=== PATIENT | female | born 1935 | race Caucasian/White ===

== ENCOUNTER → 2018-05-21 13:34 | Outpatient (CLI) | payer MEDICARE, OTHER, SELFPAY ==
--- NOTE | 2018-05-21 13:39 | DI.RAD.S_ITS ---
PROCEDURE: XR CHEST 2V INDICATIONS: edema sob TECHNIQUE: 2 views of the chest were acquired. COMPARISON: None. FINDINGS: Surgical changes and devices: None. Lungs and pleura: No pleural effusions or pneumothorax. Lungs are free of infiltrate. On lateral view, there are 9 mm and 7 mm nodular densities in the retrosternal region, the smaller probably in the right middle lobe. Mediastinum: Mediastinal contours are normal. Heart size is normal. Tortuous aorta. Possible small hiatal hernia. Bones and chest wall: No suspicious bony abnormalities. Soft tissues appear unremarkable. IMPRESSION: 1. No acute cardiopulmonary abnormality 2. Pulmonary nodules are indeterminant in absence of prior exams. The larger and more superior nodule in the retromanubrial space is not identified on PA view. Non-contrast CT chest imaging recommended for further evaluation. Dictated by: Martin Herrera M.D. on 05/21/2018 at 14:30 Approved by: Martin Herrera M.D. on 05/21/2018 at 14:34
== END ==
PROVIDERS: Family Provider Family Medicine; PCP Family Medicine; Visit Provider Family Medicine
DX: R06.02 Shortness of breath (principal); R60.9 Edema, unspecified; R91.8 Other nonspecific abnormal finding of lung field
CPT/HCPCS: 71046

== ENCOUNTER → 2018-05-29 14:25 | Outpatient (CLI) | payer MEDICARE, OTHER, SELFPAY ==
--- NOTE | 2018-05-29 14:31 | DI.CT.S_ITS ---
PROCEDURE: CT CHEST WO CON INDICATIONS: abnormal chest xray/lung nodule TECHNIQUE: Noncontrast 2.0-2.5 mm thick sections acquired from the pulmonary apices to the posterior costophrenic angles. 7 mm thick coronal and sagittal MIP reformats were then acquired. A low radiation dose technique was utilized. COMPARISON: [facility], , XR CHEST 2V, 05/21/2018, 13:24. FINDINGS: Image quality: Diagnostic, given the low radiation dose technique. Lungs and pleura: The ALEJO granuloma is present within the right middle lobe which likely corresponds with the more inferior radiopacity described on the lateral chest film dated 05/21/18. A calcified granuloma is present at the medial left lung base not characterized by plain film. There is platelike atelectasis or scarring at the right lung base. No other pulmonary nodules. No acute air space opacities. No pleural effusion or pneumothorax. Mediastinum: Heart size is normal. No pericardial effusion. No mediastinal adenopathy by size criteria. Calcified mediastinal and right hilar nodes suggest prior granulomatous disease. Thoracic aorta and central pulmonary arteries are normal in size. Scattered atheromatous calcifications are present within the aortic arch. Esophagus is normal in caliber. No hiatal hernia. Bones and chest wall: There is a questionable mass within the lateral right breast at approximately 9:00. No suspicious bony lesions. No vertebral body compression fractures. No axillary or supraclavicular adenopathy by size criteria. Dystrophic calcifications are present within the right thyroid lobe. The left thyroid lobe is unremarkable. Abdomen: Visualized upper abdomen solid organs and bowel loops appear normal in the absence of contrast. IMPRESSION: 1. Calcified granuloma within the right middle lobe likely represents the more inferior nodule described on the plain film dated 05/21/18. There is no correlate to the more superior retrosternal nodule on the lateral view suggesting an extrapulmonary radiopacity. 2. Questionable right breast mass as described above. Nonemergent second ultrasound and mammogram is recommended to further characterize this finding. Fleischner Society criteria for SOLID lung nodule followup. Nodule size (mm)Low-risk patientHigh-risk patient<6 (single or multiple)No routine followup.Optional CT at 12 months. 6-8 (single or multiple)CT at 6-12 months, then optional CT at 18-24 mo.CT at 6-12 months, then CT at 18-24 months. >8 (single)CT at 3 months, PET-CT, or biopsy. Same as for low-risk pts. >8 (multiple)CT at 3-6 months, then optional CT at 18-24 mo.CT at 3-6 months, then CT at 18-24 months. Fleischner Society criteria for SUB-SOLID lung nodule followup. Solitary pure ground-glass nodules<6 mm (ground glass or part solid)No followup needed. 6 mm or larger (ground glass)CT at 6-12 months to confirm persistence, then CT every 2 years until 5 years.6 mm or larger (part solid)CT at 3-6 months to confirm persistence, then annual CT until 5 years if unchanged and solid component remains <6 mm. Multiple sub-solid nodules<6 mmCT at 3-6 months, then CT consider at 2 & 4 years for high risk patients. [address] at 3-6 months. Subsequent management based on most suspicious lesions. Recommendations do not apply to lung cancer screening, patients with immunosuppression, or patients with known primary cancer. Dictated by: Nalini Jaime M.D. on 05/29/2018 at 17:10 Approved by: Nalini Jaime M.D. on 05/29/2018 at 17:15
== END ==
PROVIDERS: Family Provider Family Medicine; PCP Family Medicine; Visit Provider Family Medicine
DX: R91.1 Solitary pulmonary nodule (principal)
CPT/HCPCS: 71250

== ENCOUNTER 2023-11-02 11:24 | Emergency (ER) | payer MEDICARE, OTHER, SELFPAY ==
[2023-11-02 11:29] VITALS: BP 120/63; PULSE 94; RESP 16; TEMP 36.2; O2SAT 97
--- NOTE | 2023-11-02 11:33 | DI.RAD.S_ITS ---
PROCEDURE: XR KNEE LT 3V INDICATIONS: pain, no specific injury TECHNIQUE: 3 views of the knee were acquired. COMPARISON: [facility], CR, XR KNEE RT 3V, 03/23/2021, 16:13. [facility], , KNEE 3V RIGHT, 01/29/2014, 9:29. FINDINGS: Bones: No fractures or dislocations. Mild degenerative changes with mild osteophytosis and mild joint space narrowing. No suspicious bony lesions. Soft tissues: Small joint effusion. No suspicious soft tissue calcifications. IMPRESSION: No acute osseous abnormalities. Mild degenerative changes of the knee. Dictated by: Ramesh Jane M.D. on 11/02/2023 at 12:00 Approved by: Ramesh Jane M.D. on 11/02/2023 at 12:01
[2023-11-02] MEDS: ACETAMINOPHEN 325 MG TABLET 975 MG PO (12:08)
--- NOTE | 2023-11-02 12:11 | PC.NURSE ---
snack provided to take tylenol
--- NOTE | 2023-11-02 12:22 | ED.EXTPRO ---
HPI - Extremity Problem <Emy Lisa PA-C - Last Filed: 11/02/23 12:34> General Chief complaint: Extremity Problem,Nontraumatic Stated complaint: knee pain and swelling Time Seen by Provider: 11/02/23 11:55 Source: patient Mode of arrival: Ambulatory History of Present Illness HPI Narrative: 88-year-old female presents to the ED with 1 day of left-sided knee pain. Patient states she was going about her usual daily activities when she felt a sharp pain in her left knee. Patient states that she has been unable to bear weight and walk since then. Patient denies numbness, tingling, weakness. Patient has not taken any medications for the pain. Related Data Home Medications Medication Instructions Recorded Confirmed [GARLIC] ##0 03/29/17 05/30/23 amlodipine 5 mg tablet 5 mg PO DAILY 05/21/18 05/30/23 cholecalciferol (vitamin D3) 25 1,000 unit PO DAILY 05/21/18 05/30/23 mcg (1,000 unit) capsule Evening primrose PO DAILY 11/21/18 05/30/23 dapsone 25 mg tablet 25 mg PO .COMPLEX 11/21/18 05/30/23 Previous Rx's Medication Instructions Recorded metoprolol tartrate 50 mg tablet 50 mg PO BID #180 tabs 09/11/17 losartan 100 mg tablet 100 mg PO DAILY #90 tabs 11/21/18 apixaban 5 mg tablet (Eliquis) 5 mg PO BID #180 tabs 01/13/21 diclofenac sodium 1 % topical gel 2 g topical ONCE arthritis pain 01/13/21 (Voltaren) #100 grams Parking Permit... #1 ea 05/12/22 tolterodine 4 mg capsule,extended 4 mg PO DAILY #90 caps 12/01/22 release 24 hr simvastatin 20 mg tablet 20 mg PO HS #90 tabs 04/17/23 estradiol 0.01% (0.1 mg/gram) 1 g vaginal 2XW #42.5 grams 07/11/23 vaginal cream Allergies Allergy/AdvReac Type Severity Reaction Status Date / Time No Known Drug Allergies Allergy Verified 05/30/23 09:45 Review of Systems <Emy Lisa PA-C - Last Filed: 11/02/23 12:34> Constitutional Constitutional: Denies chills, Denies fatigue, Denies fever(s), Denies frequent falls, Denies lethargy and Denies weakness Eyes Eyes: Denies change in vision, Denies eye discharge, Denies irritation and Denies loss of vision ENT Ears, Nose, Mouth, and Throat: Denies change in voice, Denies dizziness, Denies neck pain, Denies sore throat and Denies throat swelling Cardiovascular Cardiovascular: Denies chest pain, Denies irregular heart rhythm, Denies lightheadedness, Denies palpitations, Denies dyspnea, Denies dyspnea on exertion and Denies orthopnea Respiratory Respiratory: Denies cough, Denies dyspnea, Denies dyspnea on exertion and Denies wheezing Gastrointestinal Gastrointestinal: Denies abdominal pain, Denies change in bowel habits, Denies diarrhea, Denies nausea and Denies vomiting Musculoskeletal Musculoskeletal: Denies neck pain and Denies numbness Comments: Left knee pain Integumentary/Breasts Skin/Breast: Denies pruritus, Denies erythema, Denies rash and Denies wounds Neurologic Neurologic: Denies behavioral changes, Denies confusion, Denies dizziness, Denies frequent falls, Denies loss of vision, Denies numbness and Denies weakness Psychiatric Psychiatric: Denies anxiety, Denies behavioral changes, Denies confusion, Denies depression, Denies homicidal ideation and Denies suicidal ideation Endocrine Endocrine: Denies fatigue, Denies flushing and Denies palpitations Hematologic/Lymphatic Hematologic/Lymphatic: Denies easy bruising Allergic/Immunologic Allergic/Immunologic: Denies urticaria, Denies throat swelling and Denies wheezing Patient History <Emy Lisa PA-C - Last Filed: 11/02/23 12:34> Medical History Left knee pain Anemia Knee pain Osteoarthritis of right knee Superficial laceration Low back pain Well adult exam Mitral regurgitation (Unknown) Epidermolysis bullosa acquisita (Unknown) Cataracts, bilateral (Unknown) GERD (gastroesophageal reflux disease) (Unknown) Hyperlipemia (Unknown) Hypertension (Unknown) Urinary incontinence (Unknown) Surgical History Status post right breast lumpectomy (~1966) Hx of cataract surgery (~2014) Family History Brother Age: 87 Heart disease Father No problems noted. Mother No problems noted. Social History Smoking Status: Never smoker alcohol intake: current substance use type: does not use Smoking Status: Never smoker alcohol intake frequency: holidays/special occasions only Substance Use Type: does not use Exam <Emy Lisa PA-C - Last Filed: 11/02/23 12:34> Narrative Exam Narrative: Const General:?cooperative, healthy appearing and comfortable HENMS Head:?normal to inspection Ears:?hearing grossly normal bilaterally Nose:?external nose normal Face and sinus:?normal facial exam and sinuses nontender Mouth:?oral mucosae normal Throat:?posterior oropharynx normal Eyes General:?appearance normal, both eyes and all related structures Neck Neck:?normal visual inspection and no lymphadenopathy noted Resp Effort & Inspection:?normal respiratory effort Auscultation:?clear to auscultation bilaterally Cardio Rate:?regular rate Rhythm:?regular rhythm Musculoskeletal There is some tenderness to palpation over the left patella. No appreciable swelling. There is full range of motion of the knee. Strength and sensation is intact. Patient is neurovascularly intact. Neuro General:?patient alert, patient awake and patient oriented x3 Initial Vital Signs Initial Vital Signs: Vital Signs Temperature 97.1 F L 11/02/23 11:29 Pulse Rate 94 H 11/02/23 11:29 Respiratory Rate 16 11/02/23 11:29 Blood Pressure 120/63 11/02/23 11:29 Pulse Oximetry 97 11/02/23 11:29 Oxygen Delivery Method Room Air 11/02/23 11:29 <Gigi Rahman MD - Last Filed: 11/02/23 17:43> Initial Vital Signs Initial Vital Signs: Vital Signs Temperature 97.1 F L 11/02/23 11:29 Pulse Rate 94 H 11/02/23 11:29 Respiratory Rate 16 11/02/23 11:29 Blood Pressure 120/63 11/02/23 11:29 Pulse Oximetry 97 11/02/23 11:29 Oxygen Delivery Method Room Air 11/02/23 11:29 Course <Emy Lisa PA-C - Last Filed: 11/02/23 12:34> Orders Ordered: ED Orders 11/02/23 11:33 XR knee LT 3V Stat Discontinued Medications Acetaminophen (Acetaminophen 325 Mg Tablet) 975 mg PO NOW ONE Stop: 11/02/23 12:05 Last Admin: 11/02/23 12:08 Dose: 975 mg Documented By: [facility] Vital Signs Vital signs: Vital Signs - 8 hr 11/02/23 11:29 Temperature 97.1 F L Pulse Rate 94 H Respiratory Rate 16 Blood Pressure 120/63 Pulse Oximetry 97 Oxygen Delivery Method Room Air <Gigi Rahman MD - Last Filed: 11/02/23 17:43> Orders Ordered: ED Orders 11/02/23 11:33 XR knee LT 3V Stat Discontinued Medications Acetaminophen (Acetaminophen 325 Mg Tablet) 975 mg PO NOW ONE Stop: 11/02/23 12:05 Last Admin: 11/02/23 12:08 Dose: 975 mg Documented By: [facility] Vital Signs Vital signs: Vital Signs - 8 hr 11/02/23 11:29 Temperature 97.1 F L Pulse Rate 94 H Respiratory Rate 16 Blood Pressure 120/63 Pulse Oximetry 97 Oxygen Delivery Method Room Air MDM - Extremity (Nontraumatic) <Emy Lisa PA-C - Last Filed: 11/02/23 12:34> MDM Narrative Medical decision making narrative: 88-year-old female presents to the ED with 1 day of left-sided knee pain. Patient states she was going about her usual daily activities when she felt a sharp pain in her left knee. Concern for fracture/dislocation versus musculoskeletal sprain/strain versus other. Will obtain x-ray, give Tylenol, lidocaine patch for pain. Will re-evaluate. X-ray shows no fractures or dislocations but a small joint effusion. Patient's symptoms most likely consistent with a musculoskeletal sprain/strain. Discussed findings with patient. Recommend rest, ice, Tylenol, lidocaine patches. Recommend follow-up with PCP for further evaluation. ED return precautions discussed with patient. Patient verbalized understanding. Medical records reviewed: Yes Discharge Plan Departure Patient Disposition: Home Clinical Impression: Acute knee pain Qualifiers: Laterality: left Qualified Code(s): M25.562 - Pain in left knee Instructions: DI for Knee Pain Activity Restrictions/Additional Instructions: You were evaluated in the ED today for left-sided knee pain. Your x-ray did not show any fractures or dislocations, only showed a small joint effusion that is likely due to a muscular sprain or strain. Please rest the knee for the next 2-3 days. You may take Tylenol 1000 mg 3 times a day with food. You may also continue to apply lidocaine patches which are available [id number] at drug stores. Please follow-up with your PCP as soon as possible. Return to the ED if you have worsening symptoms, numbness, tingling, weakness. Prescriptions: No Action amlodipine 5 mg tablet 5 mg PO DAILY cholecalciferol (vitamin D3) 1,000 unit capsule 1,000 unit PO DAILY Evening primrose PO DAILY losartan 100 mg tablet 100 mg PO DAILY Qty: 90 1RF [GARLIC] Qty: 0 metoprolol tartrate 50 MG tablet 50 mg PO BID Qty: 180 3RF dapsone 25 mg tablet 25 mg PO .COMPLEX Patient Comments: 1 PO every other day Rx Instructions: 1 PO every other day (DME) Parking Permit... See Rx Instructions .Route .MEDSUPPLY Qty: 1 0RF Rx Instructions: I find this patient to be medically disabled and qualified for disabled parking as indicated and signed on the Accompanying [employer] Parking Application for Individuals. simvastatin 20 mg tablet 20 mg PO HS Qty: 90 1RF estradiol 0.01 % (0.1 mg/gram) cream 1 g vaginal 2XW Qty: 42.5 1RF diclofenac sodium [Voltaren] 1 % gel 2 g TOP ONCE Qty: 100 5RF Rx Instructions: apply to single elbow, wrist or hand; for hand includes palm/fingers/back of hand Eliquis 5 mg tablet 5 mg PO BID Qty: 180 1RF tolterodine 4 mg capsule,extended release 24hr 4 mg PO DAILY Qty: 90 3RF Referrals: Paulo Leo, [Primary Care Provider] - Stand Alone Forms: Patient Portal/API ED Sign-out <Gigi Rahman MD - Last Filed: 11/02/23 17:43> Cosign ED Attending Dex Attestation: I was immediately available in the department for consultation. Documentation has been reviewed. I agree with assessment and plan.
== END 2023-11-02 12:26 | disposition home or self-care (01) ==
PROVIDERS: Emergency Provider Student in an Organized Health Care Education/Training Program; Family Provider Family Medicine; PCP Family Medicine
DX: M25.562 Pain in left knee (principal); Z79.01 Long term (current) use of anticoagulants; Z79.899 Other long term (current) drug therapy
CPT/HCPCS: 73562; 99283

== ENCOUNTER → 2024-02-19 09:05 | Outpatient (CLI) | payer MEDICARE, OTHER, SELFPAY ==
--- NOTE | 2024-02-19 09:06 | DI.ECHO.S_ITS ---
[facility] +---------+ : : [address] [place] : : : : [id number] : : : : Phone: [phone]+ Echocardiogram Report + + :Name: RAVI ROCA Study Date: 02/19/2024 Height: 64 in : :[facility] ReadingLocation: Weight: 120 lb : : Gender: Female BSA: 1.6 m2 : :: 1935 Age: 88 yrs BP: 125/76 mmHg: :Reason For Study: MITRAL VALVE PROLAPSE : :Ordering Physician: FELIZ, : :BRENDA Performed By: Claudette Valdez : :Referring: BRENDA PIPER : + + Interpretation Summary The left ventricle is normal in size. The ejection fraction is estimated to be 55-60%. Diastolic parameters suggest a pseudonormalization pattern, consistent with probable elevated filling pressures. The right ventricle is normal in size and function. There is prolapse of the anterior mitral valve leaflet. There is mild mitral valve prolapse. There is moderate to severe mitral regurgitation. The aortic valve is trileaflet. There is mildly reduced leaflet mobility. There is no hemodynamically significant valvular aortic stenosis. There is mild to moderate tricuspid regurgitation. Previously mild TR. Compared to the prior echo exam, there has been an increase in TR severity. The right ventricular systolic pressure is estimated to be at least 35 mmHg based on an estimated right atrial pressure of 3 mm Hg. Previously 27 mmHg. Compared to the prior echo exam, there has been an increase in the severity of pulmonary hypertension. There is mild to moderate pulmonic regurgitation. Patient has chronic moderate to severe MR for long time. Echocardiogram on January 2016 showed LVEF 55 to 60% with moderate to severe MR. Since then LVEF in the range of 55 to 65% range and MR moderate to moderate to severe on multiple echocardiograms. Procedure: A two-dimensional transthoracic echocardiogram with color flow and Doppler was performed. The study quality was technically adequate. Comparison is made with the echocardiogram of 07/29/2022. The patient was in sinus rhythm with heart rates between 55-63 bpm during the exam. Left Ventricle: The left ventricle is normal in size. Proximal septal thickening is noted. There is no thrombus. The ejection fraction is estimated to be 55-60%. There are no focal wall motion abnormalities. Diastolic parameters suggest a pseudonormalization pattern, consistent with probable elevated filling pressures. There has been no significant change since the previous study. Right Ventricle: The right ventricle is normal in size and function. Atria: The left atrium is severely dilated. The left atrium has mildly increased in size since the prior echo exam. The right atrium is mildly dilated. There is no Doppler evidence for an interatrial shunt. Mitral Valve: There is mild mitral annular calcification. The mitral valve leaflets appear mildly thickened, but open well. There is prolapse of the anterior mitral valve leaflet. There is mild mitral valve prolapse. There is moderate to severe mitral regurgitation. There are multiple regurgitant jets present. Aortic Valve: The aortic valve is mildly calcified. There is mild aortic valve sclerosis. There is mildly reduced leaflet mobility. The aortic valve is trileaflet. There is discrete nodular thickening of the right coronary cusp. There is no hemodynamically significant valvular aortic stenosis. There has been no significant change since the previous study. No aortic regurgitation is present. Tricuspid Valve: The tricuspid valve is normal. There is mild to moderate tricuspid regurgitation. The right ventricular systolic pressure is estimated to be at least 35 mmHg based on an estimated right atrial pressure of 3 mm Hg. Compared to the prior echo exam, there has been an increase in TR severity. Compared to the prior echo exam, there has been an increase in the severity of pulmonary hypertension. Pulmonic Valve: The pulmonic valve leaflets are thin and pliable; valve motion is normal. There is mild to moderate pulmonic regurgitation. Great Vessels: The aortic root is normal size. The dimensions of the ascending aorta are normal. The IVC is of normal diameter and collapses greater than 50% with a sniff. This suggests a low right atrial pressure of 3 mm Hg. Pericardium/ Pleura There is no pericardial effusion. There is no pleural effusion. MMode/2D Measurements & Calculations LVIDd: 5.3 cm LVOT diam: 2.1 cm LVIDs: 3.5 cm Ao root diam: 3.1 cm FS: 33.6 % asc Aorta Diam: 2.6 cm IVSd: 0.59 cm LVPWd: 0.69 cm LV oliveros. diameter/BSA (cm/m^2): 3.3 LV sys. diameter/BSA (cm/m^2): 2.2 LA A2 area: 24.0 cm2 RA long axis: 5.8 cm LA A4 area: 21.9 cm2 RA area: 19.7 cm2 LA length (vol): 5.9 cm RA vol: 57.5 ml LA vol: 74.9 ml RA : 36.5 ml/m2 LA vol index: 47.6 ml/m2 IVC diam: 1.7 cm RVD1 (basal): 3.0 cm RVD2 (mid): 2.3 cm TAPSE: 1.8 cm Doppler Measurements & Calculations Ao V2 max: 146.6 cm/sec LVOT Max Tony: 103.5 cm/sec Ao V2 mean: 101.6 cm/sec LV V1 max P.3 mmHg Ao max P.6 mmHg LV V1 VTI: 21.6 cm Ao mean P.5 mmHg DAKSHA(I,D): 2.3 cm2 Ao V2 VTI: 30.5 cm DAKSHA(V,D): 2.3 cm2 sev ratio: 0.71 DAKSHA indexed to BSA (cm^2/m^2): 1.5 MV E max tony: 90.7 cm/sec TR max tony: 280.0 cm/sec MV A max tony: 81.7 cm/sec TR max P.4 mmHg MV E/A: 1.1 PA V2 max: 70.9 cm/sec Med Peak E' Tony: 5.9 cm/sec PA V2 mean: 48.0 cm/sec E/E' med: 15.5 PA mean P.0 mmHg Lat Peak E' Tony: 6.1 cm/sec PA pr(Accel): 41.3 mmHg E/E' lat: 14.8 E/e' average: 15.1 MV dec time: 0.25 sec MR ERO: 0.11 cm2 MR PISA: 1.9 cm2 SV(LVOT): 71.4 ml MR flow rate: 61.9 cm3/sec MR PISA radius: 0.55 cm Reading Physician:03:42 PM
== END ==
PROVIDERS: Family Provider Family Medicine; PCP Family Medicine; Referring Provider Internal Medicine Cardiovascular Disease; Visit Provider Internal Medicine Cardiovascular Disease
DX: I08.3 Combined rheumatic disorders of mitral, aortic and tricuspid valves (principal); I27.20 Pulmonary hypertension, unspecified
CPT/HCPCS: 93306